=== PATIENT | female | born 1985 | race Hispanic/Latino ===

== ENCOUNTER → 2018-08-17 | Day surgery (SDC) | payer OTHER ==
[~2018-08-17] MED LIST: CARAFATE1 GM/10 ML PO; FENTANYL CITRATE/PF 100MCG/2 ML INJ ONE; LEVOTHYROXINE88 MCG PO; LIDOCAINE HCL 2% LOCAL INJ 5 ML SDV VIAL INJ ONE; MIDAZOLAM HCL 2 MG/2 ML VIAL ONE; PROPOFOL IV EMULSION 10 MG/ML 50 ML VIAL ONE
--- OUTSIDE RECORDS SUMMARY | 2018-08-17 10:32 | XMS REPORT | Encounter Summary ---
Author Organization Unknown Address [address] [place] [address] Phone [phone] Reason for Visit Medical Complaint Instructions 1. Acute sinusitis sinusitis: care instructions Augmentin 875 mg-125 mg tablet 2. Acute upper respiratory infection upper respiratory infection (cold): care instructions fluticasone 50 mcg/actuation nasal spray,suspension Bromfed DM 2 mg-30 mg-10 mg/5 mL syrup rapid flu (A+B) 3. Acute pharyngitis rapid strep group A, throat 4. Elevated blood-pressure reading without diagnosis of hypertension elevated blood pressure: care instructions 5. Body mass index 30+ - obesity A healthy lifestyle: care instructions Discussion Note: None recorded. Plan of Care Patient Instructions See care instructions provided. Reminders Provider Appointments None recorded. Lab Rapid Strep Group a, Throat 06/20/2018 [facility] Rapid Flu (A+B) 06/20/2018 [facility] Referral None recorded. Procedures None recorded. Surgeries None recorded. Imaging None recorded. Medications Name Start Date Augmentin 875 mg-125 mg tablet Take 1 tablet every 12 hours by oral route for 7 days. Bromfed DM 2 mg-30 mg-10 mg/5 mL syrup Take 10 mL every 4 hours by oral route as needed. fluticasone 50 mcg/actuation nasal spray,suspension [place] 1 spray twice a day by intranasal route for 14 days. levothyroxine 88 mcg tablet TAKE 1 TABLET BY MOUTH EVERY MORNING Medications Administered None recorded. Vitals Height Weight BMI Blood Pressure 5 ft 2 in 187 lbs 34.2 kg/m2 108/80 mm[Hg] Lab Results Date Name Specimen Result Interpretation Description Value Range Status Address Rapid Flu (A+B) Influenza a negative [facility]: [address] [place] [address] Influenza B negative [facility]: [address] [place] [address] Rapid Strep Group a, Throat Result negative [facility]: [address] [place] [address] Swab Location Left and Right tonsillar pillars [facility]: [address] [place] [address] Allergies Code Code System Name Reaction Severity Status Onset NKDA Problems Name Status Onset Date Source Hypothyroidism Active 03/03/2018 Gastroesophageal Reflux Disease Active 03/03/2018 Procedures None recorded. Vaccine List Vaccine Type influenza, unspecified formulation 08/16/2017 Tdap 08/02/2009 Social History Smoking Status Never Smoker Past Encounters 06/20/2018 Acute Sinusitis; Acute Upper Respiratory Infection; Acute Pharyngitis; Elevated Blood-pressure Reading without Diagnosis of Hypertension; Body Mass Index 30+ - Obesity Milena Holley, [facility]-C: [address] [place] [address], Ph. History of Present Illness Qvjzi-Kmqhwtzhjc-Ztkuflh Reported By: Patient HPI: Location: head/sinuses, throat. Quality: productive cough, sore throat, nasal/sinus congestion, dry cough. Duration: 7days. Context: no foreign travel, non-smoker, sick contact. Modifying factors: OTC medication. Associated Symptoms: no sputum production, no shortness of breath, no wheezing, no change in number of pillows needed to sleep at night, no sweats, no significant weight gain, no significant weight loss, no morning cough, no vomiting, no diarrhea, no rash, no nausea, no fever, no muscle aches, no headache, sore throat Review of Systems:ROS as noted in the HPI Review of Systems Basic Reported By: Patient Physical Exam Adult Basic, Adult Female Complete Reported By: Patient Constitutional: General Appearance: healthy-appearing, well-nourished, well-developed. Level of Distress: NAD. Ambulation: ambulating normally Psychiatric: Mental Status: active and alert. Orientation: to time, to place, to person Eyes: Lids and Conjunctivae: non-injected, no discharge, no pallor Onh-Gbmd-Qnihh-Throat: Ears: no lesions on external ear, no outer ear tenderness, EACs clear, TM opacified, middle ear fluid. Hearing: no hearing loss. Nose: no lesions on external nose, no septal deviation, nasal obstruction, sinus tenderness, nasal discharge, nasal discharge--purulent, post nasal drip. Lips, Teeth, and Gums: no mouth or lip ulcers, no bleeding gums, normal dentition. Oropharynx: moist mucous membranes, no exudates, tonsils not enlarged, erythema Lungs: Respiratory effort: no dyspnea, no tachypnea, no use of accessory muscles, no intercostal retractions. Auscultation: breath sounds normal Cardiovascular: Heart Auscultation: RRR, no murmurs
--- OUTSIDE RECORDS SUMMARY | 2018-08-17 10:32 | XMS REPORT | Encounter Summary ---
Author Organization Unknown Address [address] [place] [address] Phone [phone] Reason for Visit Medical Complaint Instructions 1. Acute pharyngitis sore throat: care instructions rapid strep group A, throat 2. Exposure to streptococcal pharyngitis amoxicillin 875 mg tablet 3. Posterior rhinorrhea 4. Body mass index 30+ - obesity eating healthy foods: care instructions Discussion Note F/U with your PCP within 3-5 days if s/s continue or worsen. Handout that was given and reviewed and pt verbalized understanding. For worsenening symptoms or shortness/ chest pain develop F/U with ER PADMIN[facility]. Plan of Care Patient Instructions Take charge of your health handout given and discussed. SE of medictions discussed and pt verbalized understanding. Reminders Provider Appointments None recorded. Lab Rapid Strep Group a, Throat 10/07/2017 [facility] Referral None recorded. Procedures None recorded. Surgeries None recorded. Imaging None recorded. Medications Name Start Date amoxicillin 875 mg tablet Take 1 tablet every 12 hours by oral route as directed for 10 days. Fluzone Quad [id number] 60 mcg (15 mcg x 4)/0.5 mL IM suspension IMMUNIZATION GIVEN levothyroxine 88 mcg tablet TAKE 1 TABLET BY MOUTH EVERY MORNING Nexium Medications Administered None recorded. Vitals Height Weight BMI Blood Pressure 5 ft 2 in 180 lbs 32.9 kg/m2 118/72 mm[Hg] Lab Results Date Name Specimen Result Interpretation Description Value Range Status Address Rapid Strep Group a, Throat Result negative [facility]: [address] [place] [address] Swab Location Left and Right tonsillar pillars [facility]: [address] [place] [address] Allergies Code Code System Name Reaction Severity Status Onset NKDA Problems No Known Problems Procedures None recorded. Vaccine List Vaccine Type influenza, unspecified formulation 08/16/2017 Tdap 08/02/2009 Social History Smoking Status Never Smoker Past Encounters 10/07/2017 Acute Pharyngitis; Exposure to Streptococcal Pharyngitis; Posterior Rhinorrhea; Body Mass Index 30+ - Obesity Sienna Amaro, [employer]: [address] [place] [address], Ph. History of Present Illness Throat-Oral Complaint Reported By: Patient HPI: Location: throat. Quality: sore throat, dry or hacking cough. Severity: pain level 5/10. Duration: 1 days. Onset/Timing: sudden. Context: no foreign travel, non-smoker, sick contact, allergies. Associated Symptoms: no fever, no body aches, no sputum production, no shortness of breath, no wheezing, no change in number of pillows needed to sleep at night, no sweats, no significant weight gain, no significant weight loss, no morning cough, no vomiting, no diarrhea, no rash, no nausea, headache, sore throat Review of Systems Basic Reported By: Patient Hfmm-Ffje-Msoeu-Throat: Ears: no ear complaints Neurologic: Neurologic: no dizziness Physical Exam Adult Basic, Adult Female Complete Reported By: Patient Constitutional: General Appearance: obese. Level of Distress: NAD. Ambulation: ambulating normally Psychiatric: Mental Status: active and alert. Orientation: to time, to place, to person Eyes: Lids and Conjunctivae: non-injected, no discharge, no pallor. Pupils: PERRLA. Sclerae: non-icteric Gft-Zboe-Szzrl-Throat: Ears: no lesions on external ear, no outer ear tenderness, EACs clear, TMs clear. Hearing: no hearing loss. Nose: no lesions on external nose, nares patent, no septal deviation, nasal passages clear, no sinus tenderness, post nasal drip. Lips, Teeth, and Gums: no mouth or lip ulcers. Oropharynx: moist mucous membranes, no exudates, tonsils not enlarged, erythema Neck: Neck: supple. Lymph Nodes: anterior cervical LAD Lungs: Respiratory effort: no dyspnea, no tachypnea, no use of accessory muscles, no intercostal retractions. Auscultation: breath sounds normal Cardiovascular: Heart Auscultation: RRR, no murmurs Neurologic: Gait and Station: normal gait, normal station
--- OUTSIDE RECORDS SUMMARY | 2018-08-17 10:32 | XMS REPORT | Encounter Summary ---
Author Organization Unknown Address [address] [place] [address] Phone [phone] Reason for Visit Medical Complaint Instructions 1. Streptococcal sore throat strep throat: care instructions rapid strep group A, throat amoxicillin 875 mg tablet 2. Rhinitis rapid flu (A+B) Discussion Note Pt is in NAD; Verbalizes understanding of all instructions with no questions at this time. Plan of Care Patient Instructions Take fluticasone (flonase) over the counter as needed for congestion. [place] one spray in each nostril twice a day. Take a warm, steamy shower, blow your nose thereafter, and spray in each nostril. Tilt your head up for about 10 seconds and breath through your mouth. Do not sniff or snort the medication in or else the medication will go to your throat and not be absorbed appropriately. Alternate with Ibuprofen and acetaminophen every 4hrs as needed for pain. Proper hydration and rest. Take antibiotics with food and recommend start a probiotic to avoid GI discomfort. Do not share any utensils/cups, no kissing and change toothbrush after 48 hrs of antibiotic use. Take medications as prescribed. Return to clinic or follow up with your PCP within 2-3 days if symptoms worsen as discussed. Reminders Provider Appointments None recorded. Lab Rapid Flu (A+B) 03/26/2017 [facility] Rapid Strep Group a, Throat 03/26/2017 [facility] Referral None recorded. Procedures None recorded. Surgeries None recorded. Imaging None recorded. Medications Name Start Date amoxicillin 875 mg tablet Take 1 tablet every 12 hours by oral route as directed for 10 days. levothyroxine 75 mcg tablet Take 1 tablet every day by oral route. Lo Loestrin Fe 1 mg-10 mcg (24)/10 mcg (2) tablet Medications Administered None recorded. Vitals Height Weight BMI Blood Pressure 5 ft 2 in 180 lbs 32.9 kg/m2 124/86 mm[Hg] Lab Results Date Name Specimen Result Interpretation Description Value Range Status Address Rapid Strep Group a, Throat Result positive [facility]: [address] [place] [address] Swab Location Left and Right tonsillar pillars [facility]: [address] [place] [address] Rapid Flu (A+B) Influenza a negative [facility]: [facility] Influenza B negative [facility]: [facility] Allergies Code Code System Name Reaction Severity Status Onset NKDA Problems None recorded. Procedures None recorded. Vaccine List Vaccine Type Tdap 08/02/2009 Social History Smoking Status Never Smoker Past Encounters 03/26/2017 Streptococcal Sore Throat; Rhinitis Gloria Covingtno, [employer]-C: [address] [place] [address], Ph. History of Present Illness Throat-Oral Complaint Reported By: Patient HPI: Location: throat. Quality: sore throat. Severity: moderate. Duration: 1 days. Onset/Timing: sudden. Context: no sick contacts, no foreign travel, non-smoker. Modifying factors: OTC medication. Associated Symptoms: no fever, no headache, no body aches, no sputum production, no shortness of breath, no wheezing, no change in number of pillows needed to sleep at night, no sweats, no significant weight gain, no significant weight loss, no morning cough, no vomiting, no diarrhea, no rash, no nausea, sore throat; rhinorrhea, nasal congestion, and chills Ymfvvbk-Ivvko-Bub Reported By: Patient HPI: Duration: 1 days. Context: no ill contacts, no tick/insect bites, no recent travel, no new medications. Associated Symptoms: no fever/chills, no headache, no muscle aches, no rash, no lethargy, nasal passage blockage (stuffiness), nasal discharge; sore throat and chills Note:<div>
</div> Review of Systems:ROS as noted in the HPI Review of Systems Basic Reported By: Patient Physical Exam Adult Basic, 14-21 Yr Male, Adult Female Complete Reported By: Patient Constitutional: General Appearance: healthy-appearing, well-nourished, well-developed. Level of Distress: NAD. Ambulation: ambulating normally Psychiatric: Mental Status: active and alert. Orientation: to time, to place, to person Oli-Smxi-Nwpuz-Throat: Ears: no lesions on external ear, no outer ear tenderness, EACs clear, TMs clear, TM mobility normal. Hearing: no hearing loss. Nose: no lesions on external nose, nares patent, no septal deviation, nasal passages clear, no sinus tenderness, no nasal discharge. Lips, Teeth, and Gums: no mouth or lip ulcers, no bleeding gums, normal dentition. Oropharynx: moist mucous membranes, no exudates, erythema, tonsils enlarged 3+ Neck: Lymph Nodes: anterior cervical LAD Lungs: Respiratory effort: no dyspnea, no tachypnea, no use of accessory muscles, no intercostal retractions. Auscultation: breath sounds normal Cardiovascular: Heart Auscultation: no murmurs, tachycardia Neurologic: Gait and Station: normal gait, normal station
--- OUTSIDE RECORDS SUMMARY | 2018-08-17 10:32 | XMS REPORT | Encounter Summary ---
Author Organization Unknown Address [address] [place] [address] Phone [phone] Reason for Visit Medical Complaint Instructions 1. Influenza-like symptoms benzonatate 200 mg capsule rapid flu (A+B) 2. Pain in throat sore throat: care instructions rapid strep group A, throat Lidocaine Viscous 2 % mucosal solution 3. Body mass index 30+ - obesity Discussion Note Pt is in NAD; Verbalizes understanding of all instructions with no questions at this time. Plan of Care Patient Instructions Take fluticasone as needed for congestion. [place] one spray in each nostril twice a day. Take a warm, steamy shower, blow your nose thereafter, and spray in each nostril. Tilt your head up for about 10 seconds and breath through your mouth. Do not sniff or snort the medication in or else the medication will go to your throat and not be absorbed appropriately. Take Benzonatate for cough as directed. Alternate with Ibuprofen and acetaminophen every 4hrs as needed for pain/fever/headache. Proper hydration and rest. Return to work/school if free of fever for 24-hrs. Do not share any utensils/cups, no kissing, recommend hand washing after coughing/sneezing/blowing nose and cover face when you do so. Take medications as prescribed. Return to clinic or follow up with your PCP within 2- 3 days if symptoms worsen as discussed. Recommend follow a low sodium/fat/carb diet and exercise 30-45 mins/d 3-4 days a week. Reminders Provider Appointments None recorded. Lab Rapid Flu (A+B) 08/28/2017 [facility] Rapid Strep Group a, Throat 08/28/2017 [facility] Referral None recorded. Procedures None recorded. Surgeries None recorded. Imaging None recorded. Medications Name Start Date benzonatate 200 mg capsule Take 1 capsule 3 times a day by oral route as needed. Fluzone Quad [id number] 60 mcg (15 mcg x 4)/0.5 mL IM suspension IMMUNIZATION GIVEN levothyroxine 88 mcg tablet TAKE 1 TABLET BY MOUTH EVERY MORNING Lidocaine Viscous 2 % mucosal solution Take 10 mL every 3 hours by oral route as needed. Lo Loestrin Fe 1 mg-10 mcg (24)/10 mcg (2) tablet Medications Administered None recorded. Vitals Height Weight BMI Blood Pressure 5 ft 2 in 182 lbs 33.3 kg/m2 120/80 mm[Hg] Lab Results Date Name Specimen Result Interpretation Description Value Range Status Address Rapid Strep Group a, Throat Result negative [facility]: [address] [place] [address] Swab Location Left and Right tonsillar pillars [facility]: [address] [place] [address] Rapid Flu (A+B) Influenza a negative [facility]: [address] [place] [address] Influenza B negative [facility]: [address] [place] [address] Allergies Code Code System Name Reaction Severity Status Onset NKDA Problems None recorded. Procedures None recorded. Vaccine List Vaccine Type influenza, unspecified formulation 08/16/2017 Tdap 08/02/2009 Social History Smoking Status Never Smoker Past Encounters 08/28/2017 Influenza-like Symptoms; Pain in Throat; Body Mass Index 30+ - Obesity Gloria Covington, [employer]NAGER-C: [address] [place] [address], Ph. History of Present Illness Throat-Oral Complaint Reported By: Patient HPI: Location: throat. Quality: sore throat. Severity: moderate, pain level 5-6/10. Duration: 3 days. Onset/Timing: sudden. Context: no foreign travel, non-smoker, sick contact; h/o allergies. Modifying factors: ; none. Associated Symptoms: no fever, no headache, no body aches, no sputum production, no shortness of breath, no wheezing, no change in number of pillows needed to sleep at night, no sweats, no significant weight gain, no significant weight loss, no morning cough, no vomiting, no diarrhea, no rash, no nausea, fatigue, sore throat; post nasal drip and dry cough Ljbufeo-Gdocb-Nms Reported By: Patient HPI: Quality: symptoms worse during the day. Duration: 3 days. Context: no tick/insect bites, no recent travel, no new medications, ill contacts. Associated Symptoms: no fever/chills, no headache, no muscle aches, no rash, no lethargy, tired (fatigue), cough, nasal discharge; post nasal drip and sore throat. Modifying Factors nothing gives relief Review of Systems:ROS as noted in the HPI Review of Systems Basic Reported By: Patient Physical Exam Adult Basic, Adult Female Complete Reported By: Patient Constitutional: General Appearance: obese. Level of Distress: NAD. Ambulation: ambulating normally Psychiatric: Mental Status: active and alert. Orientation: to time, to place, to person Hfs-Fxiw-Jkdrf-Throat: Ears: no lesions on external ear, no outer ear tenderness, EACs clear, TMs clear. Hearing: no hearing loss. Nose: no lesions on external nose, nares patent, no septal deviation, nasal passages clear, no sinus tenderness, nasal discharge--rhinorrhea, post nasal drip. Lips, Teeth, and Gums: no mouth or lip ulcers, no bleeding gums, normal dentition. Oropharynx: moist mucous membranes, no erythema, no exudates, tonsils not enlarged Neck: Lymph Nodes: no cervical LAD Lungs: Respiratory effort: no dyspnea, no tachypnea, no use of accessory muscles, no intercostal retractions. Auscultation: breath sounds normal Cardiovascular: Heart Auscultation: RRR, no murmurs Neurologic: Gait and Station: normal gait, normal station
--- OUTSIDE RECORDS SUMMARY | 2018-08-17 10:32 | XMS REPORT | Encounter Summary ---
Author Organization Unknown Address [address] [place] [address] Phone [phone] Reason for Visit Medical Complaint Instructions 1. Viral upper respiratory tract infection rapid flu (A+B) Medrol ([place]) 4 mg tablets in a dose pack 2. Cough cough: care instructions Bromfed DM 2 mg-30 mg-10 mg/5 mL syrup 3. Sore throat symptom rapid strep group A, throat sore throat: care instructions 4. Finding of fluid behind tympanic membrane 5. Body mass index 30+ - obesity Discussion Note explained to patient regarding viral vs bacterial infection. Encouraged adequate hydration and fluids. Discussed hand hygiene and CDC guidelines for viral infections. If new, worsening or persistance of symptoms follow up with PCP. If SOB, wheezing, fever, difficulty swallowing or abdominal pain go to ED. Pt verbalizes understanding and agrees with plan of care. May alternate Motrin and Tylenol for fever, pain or discomfort as needed per label instructions. Plan of Care Reminders Provider Appointments None recorded. Lab Rapid Strep Group a, Throat 04/19/2018 [facility] Rapid Flu (A+B) 04/19/2018 [facility] Referral None recorded. Procedures None recorded. Surgeries None recorded. Imaging None recorded. Medications Name Start Date Bromfed DM 2 mg-30 mg-10 mg/5 mL syrup Take 10 mL every 6 hours by oral route as needed for 5 days. levothyroxine 88 mcg tablet TAKE 1 TABLET BY MOUTH EVERY MORNING Medrol ([place]) 4 mg tablets in a dose pack take as directed Medications Administered None recorded. Vitals Height Weight BMI Blood Pressure 5 ft 2 in 188 lbs 34.4 kg/m2 110/80 mm[Hg] Lab Results Date Name Specimen Result Interpretation Description Value Range Status Address Rapid Flu (A+B) Influenza a negative [facility]: [address] [place] [address] Influenza B negative [facility]: [address] [place] [address] Rapid Strep Group a, Throat Result negative [facility]: [address] [place] [address] Swab Location Left and Right tonsillar pillars [facility]: [facility] Allergies Code Code System Name Reaction Severity Status Onset NKDA Problems Name Status Onset Date Source Hypothyroidism Active 03/03/2018 Gastroesophageal Reflux Disease Active 03/03/2018 Procedures None recorded. Vaccine List Vaccine Type influenza, unspecified formulation 08/16/2017 Tdap 08/02/2009 Social History Smoking Status Never Smoker Past Encounters 04/19/2018 Viral Upper Respiratory Tract Infection; Cough; Sore Throat Symptom; Finding of Fluid behind Tympanic Membrane; Body Mass Index 30+ - Obesity Gerardo Roberts PA-C: [address] [place] [address], Ph. History of Present Illness Jcigs-Cfkitlnana-Vehvcid Reported By: Patient HPI: Location: head/sinuses, throat. Quality: sore throat, nasal/sinus congestion, dry cough. Duration: 1days. Severity: mild. Onset/Timing: sudden. Context: no foreign travel, non-smoker, sick contact, allergies. Modifying factors: OTC medication. Associated Symptoms: no sputum production, no shortness of breath, no wheezing, no change in number of pillows needed to sleep at night, no sweats, no significant weight gain, no significant weight loss, no morning cough, no sore throat, no vomiting, no diarrhea, no rash, no nausea, no fever, no muscle aches, headache Review of Systems Basic Reported By: Patient Constitutional: Constitutional: no fever Eyes: Eyes: no eye complaints Pcqu-Jhbb-Rxdgu-Throat: Ears: no ear complaints. Nose: nose/sinus problems. Mouth/Throat: no bleeding gums, no mouth complaints, no teeth problems, sore throat Cardiovascular: Cardiovascular: no chest pain, no shortness of breath, no known heart murmur Respiratory: Respiratory: no wheezing, cough, shortness of breath Gastrointestinal: Gastrointestinal: no abdominal pain, no vomiting / diarrhea Genitourinary: Genitourinary: no urinary complaints, no discharge Musculoskeletal: Musculoskeletal: no muscle aches, no muscle weakness, no arthralgias/joint pain, no back pain Skin: Skin: no abnormal / changing mole, no jaundice, no rashes Neurologic: Neurologic: no loss of consciousness, no weakness, no numbness, no seizures, no dizziness, no headaches, headache Physical Exam Adult Basic Reported By: Patient Constitutional: General Appearance: healthy-appearing, well-nourished, well-developed, overweight. Level of Distress: NAD. Ambulation: ambulating normally Psychiatric: Mental Status: active and alert. Orientation: to time, to place, to person Eyes: Lids and Conjunctivae: non-injected, no discharge, no pallor. Pupils: PERRLA. EOM: EOMI. Sclerae: non-icteric. Vision: acuity grossly intact Dln-Gzkn-Wmkpt-Throat: Ears: no lesions on external ear, no outer ear tenderness, EACs clear, TMs clear, middle ear fluid. Hearing: no hearing loss. Nose: no lesions on external nose, nares patent, no septal deviation, nasal passages clear, sinus tenderness, nasal discharge, nasal discharge--purulent, nasal discharge--rhinorrhea, post nasal drip. Lips, Teeth, and Gums: no mouth or lip ulcers, no bleeding gums, normal dentition. Oropharynx: moist mucous membranes, no erythema, no exudates, tonsils not enlarged; cobblestoning Neck: Neck: supple, trachea midline, no masses, FROM. Lymph Nodes: no cervical LAD, no supraclavicular LAD, no inguinal LAD Lungs: Respiratory effort: no dyspnea, no tachypnea, no use of accessory muscles, no intercostal retractions. Auscultation: breath sounds normal Cardiovascular: Heart Auscultation: RRR, no murmurs
--- OUTSIDE RECORDS SUMMARY | 2018-08-17 10:32 | XMS REPORT | Continuity of Care Document ---
Author Author [facility] Interface Address Unknown Phone Unavailable Problems Problem Status Onset Date Classification Date Reported Comments Source Elevated blood-pressure reading without diagnosis of hypertension 06/20/2018 Diagnosis 06/20/2018 [facility] Acute pharyngitis 06/20/2018 Diagnosis 06/20/2018 [facility] Acute sinusitis 06/20/2018 Diagnosis 06/20/2018 [facility] Acute upper respiratory infection 06/20/2018 Diagnosis 06/20/2018 [facility] Body mass index 30+ - obesity 06/20/2018 Diagnosis 06/20/2018 [facility] Sore throat symptom 04/19/2018 Diagnosis 04/19/2018 [facility] Finding of fluid behind tympanic membrane 04/19/2018 Diagnosis 04/19/2018 [facility] Cough 04/19/2018 Diagnosis 04/19/2018 [facility] Viral upper respiratory tract infection 04/19/2018 Diagnosis 04/19/2018 [facility] Pain in throat 03/03/2018 Diagnosis 03/03/2018 [facility] Influenza-like symptoms 03/03/2018 Diagnosis 03/03/2018 [facility] Hypothyroidism 03/03/2018 Problem 06/20/2018 [facility] Gastroesophageal Reflux Disease 03/03/2018 Problem 06/20/2018 [facility] Pain in Throat 03/03/2018 Problem 03/03/2018 [facility] Influenza-like Symptoms 03/03/2018 Problem 03/03/2018 [facility] Exposure to streptococcal pharyngitis 10/07/2017 Diagnosis 10/07/2017 [facility] Posterior rhinorrhea 10/07/2017 Diagnosis 10/07/2017 [facility] Streptococcal sore throat 03/26/2017 Diagnosis 03/27/2017 [facility] Rhinitis 03/26/2017 Diagnosis 03/27/2017 [facility] Medications Medication Details Route Status Patient Instructions Ordering Provider Order Date Source Amoxicillin 875 MG Oral Tablet amoxicillin 875 mg tablet Take 1 tablet every 12 hours by oral route as directed for 10 days. Active [facility] Levothyroxine Sodium 0.075 MG Oral Tablet levothyroxine 75 mcg tablet Take 1 tablet every day by oral route. Active [facility] Lo Loestrin Fe 1 mg-10 mcg (24)/10 mcg (2) tablet Lo Loestrin Fe 1 mg-10 mcg (24)/10 mcg (2) tablet Active [facility] influenza A virus A/[place] (H3N2) antigen 0.03 MG/ML / influenza A virus A/[place] (H1N1) antigen 0.03 MG/ML / influenza B virus B/[place] antigen 0.03 MG/ML / influenza B virus B/[facility] antigen 0.03 MG/ML Injectable Suspension [Fluzone Quadrivalent [id number]] Fluzone Quad [id number] 60 mcg (15 mcg x 4)/0.5 mL IM suspension IMMUNIZATION GIVEN Active [facility] Levothyroxine Sodium 0.088 MG Oral Tablet levothyroxine 88 mcg tablet TAKE 1 TABLET BY MOUTH EVERY MORNING Active [facility] Nexium Nexium Active [facility] Amoxicillin 875 MG / Clavulanate 125 MG Oral Tablet [Augmentin] Augmentin 875 mg-125 mg tablet Take 1 tablet every 12 hours by oral route for 7 days. Active [facility] Brompheniramine Maleate 0.4 MG/ML / Dextromethorphan Hydrobromide 2 MG/ML / Pseudoephedrine Hydrochloride 6 MG/ML Oral Solution [Bromfed DM] Bromfed DM 2 mg-30 mg-10 mg/5 mL syrup Take 10 mL every 4 hours by oral route as needed. Active [facility] Fluticasone propionate 0.05 MG/ACTUAT Metered Dose Nasal [place] fluticasone 50 mcg/actuation nasal spray,suspension [place] 1 spray twice a day by intranasal route for 14 days. Active [facility] Esomeprazole 40 MG Delayed Release Oral Capsule esomeprazole magnesium 40 mg capsule,delayed release Active [facility] benzonatate 200 MG Oral Capsule benzonatate 200 mg capsule Take 1 capsule 3 times a day by oral route as needed. Active [facility] Lidocaine Hydrochloride 20 MG/ML Mucous Membrane Topical Solution Lidocaine Viscous 2 % mucosal solution Take 10 mL every 3 hours by oral route as needed. Active [facility] Medrol (Noble) 4 mg tablets in a dose pack Medrol ([place]le) 4 mg tablets in a dose pack take as directed Active [facility] Allergies, Adverse Reactions, Alerts Substance Category Reaction Severity Reaction type Status Date Reported Comments Source Immunizations Immunization Date Given Site Status Last Updated Comments Source influenza, unspecified formulation 08/16/2017 completed [facility] Tdap 08/02/2009 completed [facility] Results Order Name Results Value Reference Range Date Interpretation Comments Source Influenza A negative 06/20/2018 [facility] Influenza B negative 06/20/2018 [facility] RESULT negative 06/20/2018 [facility] SWAB LOCATION Left and Right tonsillar pillars 06/20/2018 [facility] Influenza A negative 04/19/2018 [facility] Influenza B negative 04/19/2018 [facility] RESULT negative 04/19/2018 [facility] SWAB LOCATION Left and Right tonsillar pillars 04/19/2018 [facility] RESULT negative 03/03/2018 [facility] SWAB LOCATION Left and Right tonsillar pillars 03/03/2018 [facility] Influenza A negative 03/03/2018 [facility] Influenza B negative 03/03/2018 [facility] RESULT negative 10/07/2017 [facility] SWAB LOCATION Left and Right tonsillar pillars 10/07/2017 [facility] RESULT negative 08/28/2017 [facility] SWAB LOCATION Left and Right tonsillar pillars 08/28/2017 [facility] Influenza A negative 08/28/2017 [facility] Influenza B negative 08/28/2017 [facility] RESULT positive 03/26/2017 [facility] SWAB LOCATION Left and Right tonsillar pillars 03/26/2017 [facility] Influenza A negative 03/26/2017 [facility] Influenza B negative 03/26/2017 [facility] Vital Signs Vital Sign Value Date Comments Source Diastolic (mm Hg) 80 06/20/2018 [facility] Height 62 06/20/2018 [facility] Systolic (mm Hg) 108 06/20/2018 [facility] Weight 187 06/20/2018 [facility] Diastolic (mm Hg) 80 04/19/2018 [facility] Height 62 04/19/2018 [facility] Systolic (mm Hg) 110 04/19/2018 [facility] Weight 188 04/19/2018 [facility] Diastolic (mm Hg) 60 03/03/2018 [facility] Height 62 03/03/2018 [facility] Systolic (mm Hg) 100 03/03/2018 [facility] Weight 185 03/03/2018 [facility] Diastolic (mm Hg) 72 10/07/2017 [facility] Height 62 10/07/2017 [facility] Systolic (mm Hg) 118 10/07/2017 [facility] Weight 180 10/07/2017 [facility] Diastolic (mm Hg) 80 08/28/2017 [facility] Height 62 08/28/2017 [facility] Systolic (mm Hg) 120 08/28/2017 [facility] Weight 182 08/28/2017 [facility] Diastolic (mm Hg) 86 03/26/2017 [facility] Height 62 03/26/2017 [facility] Systolic (mm Hg) 124 03/26/2017 [facility] Weight 180 03/26/2017 [facility] Encounters Location Location Details Encounter Type Encounter Number Reason For Visit Attending Provider ADM Date DC Date Status Source [place] - [facility] - [id number] Hood-C: [address] [place] [address], Ph. [id number] Gloria Covington 03/26/2017 [facility] [place] [facility] - [id number] [place]ton CASHIER RECEPTIONIST-C: [address] [place] [address], Ph. [id number] Gloria Covington 08/28/2017 [facility] [place] [facility] - [id number] Sienna Amaro, PIANO ACCOMPANIST: [address] [place] [address], Ph. [id number] Sienna Amaro 10/07/2017 [facility] [place] [facility] - [id number] JEANNETTE CortesP-C: [address] [place] [address], Ph. [id number] Gloria Covington 03/03/2018 [facility] [place] [facility] - [id number] VIVI Bowman-C: [address] [place] [address], Ph. [id number] Gerardo Roberts 04/19/2018 [facility] [place] [facility] - [id number] LUDIVINA Benjamin-C: [address] [place] [address], Ph. [id number] Milena Holley 06/20/2018 [facility] Procedures Procedure Code Date Perfomer Comments Source
--- OUTSIDE RECORDS SUMMARY | 2018-08-17 10:32 | XMS REPORT | Encounter Summary ---
Author Organization Unknown Address [address] [place] [address] Phone [phone] Reason for Visit Medical Complaint Instructions 1. Influenza-like symptoms rapid flu (A+B) Bromfed DM 2 mg-30 mg-10 mg/5 mL syrup fluticasone 50 mcg/actuation nasal spray,suspension 2. Pain in throat rapid strep group A, throat sore throat: care instructions 3. Body mass index 30+ - obesity body mass index: care instructions Discussion Note Pt is in NAD; Verbalizes understanding of all instructions with no questions at this time. Plan of Care Patient Instructions Take fluticasone as needed for congestion. [place] one spray in each nostril twice a day. Take a warm, steamy shower, blow your nose thereafter, and spray in each nostril. Tilt your head up for about 10 seconds and breath through your mouth. Do not sniff or snort the medication in or else the medication will go to your throat and not be absorbed appropriately. Take tylenol over the counter for pain/headache/fever as per pacakge insert. Take Bromfed DM for cough as directed. Take medications as prescribed and follow up with a PCP within 2-3 if symptoms worsen as discussed. Recommend follow a low sodium/fat/carb diet and exercise 30-45 mins/d 3-4 days a week once symptoms resolve. Reminders Provider Appointments None recorded. Lab Rapid Flu (A+B) 03/03/2018 [facility] Rapid Strep Group a, Throat 03/03/2018 [facility] Referral None recorded. Procedures None recorded. Surgeries None recorded. Imaging None recorded. Medications Name Start Date Bromfed DM 2 mg-30 mg-10 mg/5 mL syrup Take 10 mL every 6 hours by oral route as needed for 5 days. esomeprazole magnesium 40 mg capsule,delayed release fluticasone 50 mcg/actuation nasal spray,suspension [place] 2 sprays every day by intranasal route as needed. Fluzone Quad [id number] 60 mcg (15 mcg x 4)/0.5 mL IM suspension IMMUNIZATION GIVEN levothyroxine 88 mcg tablet TAKE 1 TABLET BY MOUTH EVERY MORNING Medications Administered None recorded. Vitals Height Weight BMI Blood Pressure 5 ft 2 in 185 lbs 33.8 kg/m2 100/60 mm[Hg] Lab Results Date Name Specimen Result Interpretation Description Value Range Status Address Rapid Strep Group a, Throat Result negative [facility]: [address] [place] [address] Swab Location Left and Right tonsillar pillars [facility]: [address] [place] [address] Rapid Flu (A+B) Influenza a negative [facility]: [address] [place] [address] Influenza B negative [facility]: [address] [place] [address] Allergies Code Code System Name Reaction Severity Status Onset NKDA Problems Name Status Onset Date Source Hypothyroidism Active 03/03/2018 Pain in Throat Active 03/03/2018 Gastroesophageal Reflux Disease Active 03/03/2018 Influenza-like Symptoms Active 03/03/2018 Procedures None recorded. Vaccine List Vaccine Type influenza, unspecified formulation 08/16/2017 Tdap 08/02/2009 Social History Smoking Status Never Smoker Past Encounters 03/03/2018 Influenza-like Symptoms; Pain in Throat; Body Mass Index 30+ - Obesity Gloria Covington, PRIVATE EQU[employer] ASSOCIATE-C: [address] [place] [address], Ph. History of Present Illness [id number] Reported By: Patient HPI: Quality: symptoms worse during the day. Duration: constant. Context: no tick/insect bites, no recent travel, no new medications, ill contacts. Associated Symptoms: no fever/chills, no headache, no muscle aches, no rash, no lethargy, nasal discharge; sore throat. Modifying Factors ; has not taken any medications Review of Systems Basic Reported By: Patient Constitutional: Constitutional: no fever Eyes: Eyes: no eye complaints Igss-Mlag-Lxuob-Throat: Ears: no ear complaints. Nose: nose/sinus problems. Mouth/Throat: no bleeding gums, no mouth complaints, no teeth problems, sore throat Cardiovascular: Cardiovascular: no chest pain, no shortness of breath, no known heart murmur Respiratory: Respiratory: no cough, no wheezing, no shortness of breath Gastrointestinal: Gastrointestinal: no abdominal pain, no vomiting / diarrhea Genitourinary: Genitourinary: no urinary complaints, no discharge Musculoskeletal: Musculoskeletal: no muscle aches, no muscle weakness, no arthralgias/joint pain, no back pain Skin: Skin: no abnormal / changing mole, no jaundice, no rashes Neurologic: Neurologic: no loss of consciousness, no weakness, no numbness, no seizures, no dizziness, no headaches Physical Exam Adult Basic, Adult Female Complete Reported By: Patient Constitutional: General Appearance: obese. Level of Distress: NAD. Ambulation: ambulating normally Psychiatric: Mental Status: active and alert. Orientation: to time, to place, to person Eyes: Lids and Conjunctivae: non-injected, no discharge, no pallor. Corneas: grossly intact. Lens: clear Dgm-[id number]-Odrcx-Throat: Ears: no lesions on external ear, no outer ear tenderness, EACs clear, TMs clear. Hearing: no hearing loss. Nose: no lesions on external nose, nares patent, no septal deviation, nasal passages clear, no sinus tenderness, nasal discharge--rhinorrhea, post nasal drip; B/L NTs pale and edematous. Lips, Teeth, and Gums: no mouth or lip ulcers, no bleeding gums, normal dentition. Oropharynx: moist mucous membranes, no erythema, no exudates, tonsils not enlarged Neck: Neck: supple. Lymph Nodes: no cervical LAD Lungs: Respiratory effort: no dyspnea, no tachypnea, no use of accessory muscles, no intercostal retractions. Auscultation: breath sounds normal Cardiovascular: Heart Auscultation: RRR, no murmurs Neurologic: Gait and Station: normal gait, normal station. Cranial Nerves: grossly intact
[2018-08-17 12:00] VITALS: BP 102/67
== END | disposition home or self-care (01) ==
LOC: OR 10:26
PROVIDERS: ATTEND Internal Medicine Gastroenterology
DX: K29.60 Other gastritis without bleeding (principal); E03.9 Hypothyroidism, unspecified; K25.9 Gastric ulcer, unspecified as acute or chronic, without hemorrhage or perforation; K21.9 Gastro-esophageal reflux disease without esophagitis; K20.9 Esophagitis, unspecified; K44.9 Diaphragmatic hernia without obstruction or gangrene; K80.62 Calculus of gallbladder and bile duct with acute cholecystitis without obstruction; E20.8 Other hypoparathyroidism; F41.9 Anxiety disorder, unspecified; F17.210 Nicotine dependence, cigarettes, uncomplicated; Z68.33 Body mass index [BMI] 33.0-33.9, adult
CPT/HCPCS: 43239; 43450; 81025; J2001; J2250